=== PATIENT | male | born 1945 | race Caucasian/White ===

== ENCOUNTER → 2017-01-07 | Outpatient (CLI) | payer MEDICARE ==
--- NOTE | 2017-01-07 11:55 | REP ---
CERVICAL SPINE, EIGHT VIEW: HISTORY: Cervicalgia. There is no acute fracture or subluxation. The C3-4 through C6-7 intervertebral discs are decreased in height consistent with disc degeneration. Osteophytes are present on C3-7. There is narrowing of the right C3-5 neural foramina secondary to uncinate process hypertrophy. The left neural foramina are not well seen. IMPRESSION: Degenerative change as described above. Signed by Tadeo Rios MD 01/07/2017 12:03 P
== END ==
LOC: M WUC 09:43
PROVIDERS: ATTEND Family Medicine
DX: M54.2 Cervicalgia (principal)

== ENCOUNTER → 2018-01-15 | Outpatient (CLI) | payer MEDICARE ==
[2018-01-15 13:23] LABS: BASO # 0.1 10^3/uL (0.0-0.2); BASO % 1.3 % (0.0-1.0); EOS % 0.2 % (0.0-3.0); HEMATOCRIT 50.5 % (42.0-52.0); HEMOGLOBIN 17.3 g/dl (14.0-18.0); IMMATURE GRANULOCYTE % 0.2 % (0-3.0); LYMPH # 1.2 10^3/uL (1.5-4.5); LYMPH % 22.6 % (24.0-44.0); MEAN CORPUSCULAR HEMOGLOBIN 29.9 pg (27.0-33.0); MEAN CORPUSCULAR HGB CONC 34.3 g/dl (32.0-36.5); MEAN CORPUSCULAR VOLUME 87.4 fl (80.0-96.0); MONO # 0.4 10^3/uL (0.0-0.8); MONO % 6.8 % (0.0-5.0); NEUTROPHILS # 3.6 10^3/uL (1.8-7.7); NEUTROPHILS % 68.9 % (36.0-66.0); PLATELET COUNT, AUTOMATED 189 10^3/uL (150-450); RED BLOOD COUNT 5.78 10^6/uL (4.30-6.10); RED CELL DISTRIBUTION WIDTH 12.3 % (11.5-14.5); WHITE BLOOD COUNT 5.3 10^3/uL (4.0-10.0)
[2018-01-15 14:24] LABS: ALBUMIN 3.8 GM/DL (3.2-5.2); ALBUMIN/GLOBULIN RATIO 1.52 (1.00-1.93); ALKALINE PHOSPHATASE 76 U/L (45-117); ALT/SGPT 24 U/L (12-78); ANION GAP 5 MEQ/L (8-16); AST/SGOT 19 U/L (7-37); BILIRUBIN,TOTAL 2.4 MG/DL (0.2-1.0); BLOOD UREA NITROGEN 13 MG/DL (7-18); CALCIUM LEVEL 8.5 MG/DL (8.8-10.2); CARBON DIOXIDE LEVEL 30 MEQ/L (21-32); CHLORIDE LEVEL 108 MEQ/L (98-107); CHOLESTEROL LEVEL 237 MG/DL (<200); CHOLESTEROL RISK RATIO 3.246 (<5); CREATININE FOR GFR 0.88 MG/DL (0.70-1.30); GLOMERULAR FILTRATION RATE > 60.0 (>42); GLUCOSE, FASTING 96 MG/DL (70-100); HDL CHOLESTEROL 73 MG/DL (>40); LDL CHOLESTEROL 139.6 MG/DL (<100); NON-HDL-C 164 MG/DL; POTASSIUM SERUM 4.5 MEQ/L (3.5-5.1); PROSTATIC SPECIFIC AG MONITOR 2.09 NG/ML (< 4.0); SODIUM LEVEL 143 MEQ/L (136-145); TOTAL PROTEIN 6.3 GM/DL (6.4-8.2); TRIGLYCERIDES LEVEL 122 MG/DL (<150)
== END ==
LOC: M WUC 08:42
DX: Z12.5 Encounter for screening for malignant neoplasm of prostate (principal); I10 Essential (primary) hypertension
CPT/HCPCS: 80053

== ENCOUNTER → 2018-11-23 | Outpatient (CLI) | payer MEDICARE ==
[2018-11-23 10:08] LABS: BASO # 0.1 10^3/uL (0.0-0.2); BASO % 0.8 % (0.0-1.0); HEMOGLOBIN 17.3 g/dl (13.5-17.5); LYMPH # 1.5 10^3/uL (1.5-4.5); LYMPH % 23.5 % (24.0-44.0); MEAN CORPUSCULAR HEMOGLOBIN 31.1 pg (27.0-33.0); MEAN CORPUSCULAR HGB CONC 34.6 g/dl (32.0-36.5); MEAN CORPUSCULAR VOLUME 89.8 fl (80.0-96.0); MONO # 0.4 10^3/uL (0.0-0.8); MONO % 5.3 % (0.0-5.0); NEUTROPHILS # 4.6 10^3/uL (1.8-7.7); NEUTROPHILS % 69.8 % (36.0-66.0); PLATELET COUNT, AUTOMATED 174 10^3/uL (150-450); RED BLOOD COUNT 5.57 10^6/uL (4.30-6.10); WHITE BLOOD COUNT 6.6 10^3/uL (4.0-10.0)
[2018-11-23 10:32] LABS: ALBUMIN 3.8 GM/DL (3.2-5.2); ALT/SGPT 26 U/L (12-78); BILIRUBIN,TOTAL 2.1 MG/DL (0.2-1.0); BLOOD UREA NITROGEN 20 MG/DL (7-18); CALCIUM LEVEL 8.9 MG/DL (8.8-10.2); CARBON DIOXIDE LEVEL 30 MEQ/L (21-32); CHLORIDE LEVEL 105 MEQ/L (98-107); CHOLESTEROL LEVEL 221 MG/DL (<200); CHOLESTEROL RISK RATIO 3.348 (<5); CREATININE FOR GFR 0.79 MG/DL (0.70-1.30); GLOMERULAR FILTRATION RATE > 60.0 (>42); GLUCOSE, FASTING 98 MG/DL (70-100); HDL CHOLESTEROL 66 MG/DL (>40); LDL CHOLESTEROL 123 MG/DL (<100); NON-HDL-C 155 MG/DL; POTASSIUM SERUM 4.3 MEQ/L (3.5-5.1); SODIUM LEVEL 144 MEQ/L (136-145); TRIGLYCERIDES LEVEL 158 MG/DL (<150)
== END ==
LOC: M WUC 08:04
PROVIDERS: ATTEND Family Medicine
DX: I10 Essential (primary) hypertension (principal)

== ENCOUNTER → 2018-12-08 | Outpatient (CLI) | payer MEDICARE | LOC: M WUC 08:25 | PROVIDERS: ATTEND Family Medicine | DX: D35.00 Benign neoplasm of unspecified adrenal gland (principal) ==

== ENCOUNTER → 2018-12-14 | Outpatient (CLI) | payer MEDICARE | LOC: M WUC 08:05 | PROVIDERS: ATTEND Family Medicine | DX: D35.00 Benign neoplasm of unspecified adrenal gland (principal) ==

== ENCOUNTER → 2018-12-15 | Outpatient (REF) | payer MEDICARE | LOC: M LAB REF 10:22 | PROVIDERS: ATTEND Family Medicine | DX: D35.00 Benign neoplasm of unspecified adrenal gland (principal) ==

== ENCOUNTER 2019-01-06 08:55 | Day surgery (SDC) | payer MEDICARE ==
[~2019-01-06] VITALS: Ht 172.7 cm; Wt 83.0 kg
[~2019-01-06 08:55] MED LIST: LIDOCAINE 2% INJ 100 MG/5 ML SDV (FOR ANES.) As Ordered ONE; LISI10TA2 PO; MULT1TAB28 PO; NS 1,000 ML IV ONE; OSTETAB PO; PROPOFOL 200 MG/20 ML VIAL As Ordered ONE; TURM1CAP5 PO
[2019-01-06] MEDS ORDERED: PROPOFOL 200 MG/20 ML VIAL As Ordered ONE (12:09)
--- NOTE | 2019-01-06 12:19 | ROOR ---
Patient Name: Williams Gaona Procedure Date: 01/06/2019 11:20 AM Date of : 1945 Age: 73 Room: [facility] Gender: Male Note Status: Finalized Procedure: Upper GI endoscopy Indications: Abdominal pain in the right upper quadrant Providers: Giuliano Joseph MD Referring MD: Zackary Grant MD Requesting Provider: Medicines: Monitored Anesthesia Care Complications: No immediate complications. Procedure: Pre-Anesthesia Assessment: - Prior to the procedure, a History and Physical was performed, and patient medications and allergies were reviewed. The patient is competent. The risks and benefits of the procedure and the sedation options and risks were discussed with the patient. All questions were answered and informed consent was obtained. Patient identification and proposed procedure were verified by the physician, the nurse and the anesthesiologist in the endoscopy suite. Mental Status Examination: alert and oriented. Airway Examination: normal oropharyngeal airway and neck mobility. Respiratory Examination: clear to auscultation. CV Examination: normal. Prophylactic Antibiotics: The patient does not require prophylactic antibiotics. Prior Anticoagulants: The patient has taken no previous anticoagulant or antiplatelet agents. ASA Grade Assessment: II - A patient with mild systemic disease. After reviewing the risks and benefits, the patient was deemed in satisfactory condition to undergo the procedure. The anesthesia plan was to use monitored anesthesia care (MAC). Immediately prior to administration of medications, the patient was re-assessed for adequacy to receive sedatives. The heart rate, respiratory rate, oxygen saturations, blood pressure, adequacy of pulmonary ventilation, and response to care were monitored throughout the procedure. The physical status of the patient was re-assessed after the procedure. The Endoscope was introduced through the mouth, and advanced to the second part of duodenum. The upper GI endoscopy was accomplished without difficulty. The patient tolerated the procedure well. Findings: A small hiatal hernia was present. The Z-line was irregular and was found 38 cm from the incisors. This was biopsied with a cold forceps for histology. Patchy nodular mucosa was found in the gastric antrum. Biopsies were taken with a cold forceps for Helicobacter pylori testing. Estimated blood loss was minimal. Scattered mild mucosal variance characterized by scarring and altered texture was found in the duodenal bulb. Biopsies were taken with a cold forceps for histology. Estimated blood loss was minimal. Impression: - Small hiatal hernia. - Z-line irregular, 38 cm from the incisors. Biopsied. - Nodular mucosa in the gastric antrum. Biopsied. - Mucosal variant in the duodenum. Biopsied. Recommendation: - Discharge patient to home (ambulatory). - Telephone my office for pathology results in 1 week. Giuliano Joseph MD Giuliano Joseph MD 01/06/2019 12:19:44 PM This report has been signed electronically. Number of Addenda: 0 Note Initiated On: 01/06/2019 11:20 AM Estimated Blood Loss: Estimated blood loss was minimal.
--- NOTE | 2019-01-06 12:25 | ROOR ---
Patient Name: Williams Gaona Procedure Date: 01/06/2019 11:21 AM Date of : 1945 Age: 73 Room: [facility] Gender: Male Note Status: Finalized Procedure: Colonoscopy Indications: Abdominal pain Providers: Giuliano Joseph MD Referring MD: Zackary Grant MD Requesting Provider: Medicines: Monitored Anesthesia Care Complications: No immediate complications. Procedure: Pre-Anesthesia Assessment: - Prior to the procedure, a History and Physical was performed, and patient medications and allergies were reviewed. The patient is competent. The risks and benefits of the procedure and the sedation options and risks were discussed with the patient. All questions were answered and informed consent was obtained. Patient identification and proposed procedure were verified by the physician, the nurse and the anesthesiologist in the endoscopy suite. Mental Status Examination: alert and oriented. Airway Examination: normal oropharyngeal airway and neck mobility. Respiratory Examination: clear to auscultation. CV Examination: normal. Prophylactic Antibiotics: The patient does not require prophylactic antibiotics. Prior Anticoagulants: The patient has taken no previous anticoagulant or antiplatelet agents. ASA Grade Assessment: II - A patient with mild systemic disease. After reviewing the risks and benefits, the patient was deemed in satisfactory condition to undergo the procedure. The anesthesia plan was to use monitored anesthesia care (MAC). Immediately prior to administration of medications, the patient was re-assessed for adequacy to receive sedatives. The heart rate, respiratory rate, oxygen saturations, blood pressure, adequacy of pulmonary ventilation, and response to care were monitored throughout the procedure. The physical status of the patient was re-assessed after the procedure. The Colonoscope was introduced through the anus and advanced to the cecum, identified by appendiceal orifice and ileocecal valve. The colonoscopy was technically difficult and complex due to unable to hold much air with insufflation. The patient tolerated the procedure well. The quality of the bowel preparation was adequate to identify polyps. Findings: Hemorrhoids were found on perianal exam. A 25 to 26 mm polyp was found in the sigmoid colon. The polyp was pedunculated. The polyp was removed with a hot snare. Resection and retrieval were complete. Snare polypectomy done, polyp is about 2 cms, hard, Additional margins obtained with snare polypectomy of the base Clips placed at the end x 2 to prevent bleeding Estimated blood loss: none. Non-bleeding external and internal hemorrhoids were found during retroflexion and during perianal exam. The hemorrhoids were medium-sized. Impression: - Hemorrhoids found on perianal exam. - One 25 to 26 mm polyp in the sigmoid colon, removed with a hot snare. Resected and retrieved. - Non-bleeding external and internal hemorrhoids. Recommendation: - Telephone my office for pathology results in 1 week. - Repeat colonoscopy in 1 year for surveillance. Giuliano Joseph MD Giuliano Joseph MD 01/06/2019 12:24:59 PM This report has been signed electronically. Number of Addenda: 0 Note Initiated On: 01/06/2019 11:21 AM Estimated Blood Loss: Estimated blood loss: none.
[2019-01-06 12:50] VITALS: BP 127/84
== END 2019-01-06 13:15 | disposition home or self-care (01) ==
LOC: M OPP 08:55
PROVIDERS: ATTEND Surgery
DX: K64.8 Other hemorrhoids (principal); D12.5 Benign neoplasm of sigmoid colon; K44.9 Diaphragmatic hernia without obstruction or gangrene; K22.8 Other specified diseases of esophagus; K31.89 Other diseases of stomach and duodenum; R10.11 Right upper quadrant pain; Z79.899 Other long term (current) drug therapy; Z87.891 Personal history of nicotine dependence

== ENCOUNTER → 2019-10-20 | Outpatient (CLI) | payer MEDICARE ==
[~2019-10-20] MED LIST changes: -LIDOCAINE 2% INJ 100 MG/5 ML SDV (FOR ANES.) As Ordered ONE; +LISI10TA15 PO; -LISI10TA2 PO; -NS 1,000 ML IV ONE; -PROPOFOL 200 MG/20 ML VIAL As Ordered ONE
[2019-10-20 10:18] LABS: BLOOD UREA NITROGEN 13 MG/DL (7-18); CALCIUM LEVEL 8.7 MG/DL (8.8-10.2); CARBON DIOXIDE LEVEL 28 MEQ/L (21-32); CHLORIDE LEVEL 108 MEQ/L (98-107); CREATININE FOR GFR 0.81 MG/DL (0.70-1.30); GLOMERULAR FILTRATION RATE > 60.0 (>42); GLUCOSE, FASTING 93 MG/DL (70-100); POTASSIUM SERUM 4.1 MEQ/L (3.5-5.1); SODIUM LEVEL 143 MEQ/L (136-145)
== END ==
LOC: M WUC 08:06
PROVIDERS: ATTEND Family Medicine
DX: I10 Essential (primary) hypertension (principal)

== ENCOUNTER → 2019-10-26 | Outpatient (CLI) | payer MEDICARE ==
[~2019-10-26] MED LIST changes: +PROHANCE 279.3MG/ML 15ML VIAL (A9576) As Ordered ONE
--- NOTE | 2019-10-26 14:13 | REP ---
MRI ABDOMEN AND ADRENALS WITHOUT AND WITH IV CONTRAST: HISTORY: Benign neoplasm of the adrenal gland. Comparison MRI study of the abdomen [facility] dated November 30, 2018. This was read as showing two small hemangiomas of the liver, a gallstone, and a small left adrenal adenoma. There were a benign appearing renal cysts. MRI FINDINGS: Axial and coronal images are acquired. T1- and T2-weighted sequences include spin-echo, fast spin echo, in- and [id number], diffusion, and postcontrast imaging. The MRI contrast enhancement dose is 15 mL of intravenous ProHance. MRI FINDINGS: There are multiple parapelvic cysts and cortical cysts in the kidneys. The largest cyst in the right kidney is in its lower pole measuring 3.4 cm in diameter. There is a parapelvic cyst in the left kidney which is somewhat elongate measuring 1.9 cm in diameter. A gallstone is visible in the neck of the gallbladder as before. Spleen is unremarkable. The right adrenal gland is normal. The left adrenal gland superiorly contains a small nodular area, 1.4 cm in diameter, unchanged from the prior study. This shows signal loss on the [id number] imaging consistent with intralesional fat. There are two small hyperintense lesions seen and near the dome of the liver almost excluded from the field of view on coronal T2-weighted scans but unchanged from the prior study. IMPRESSION: 1. Small benign adrenal adenoma. This does not merit interval followup. 2. Multiple benign appearing cysts in the right kidney. 3. Stable benign liver lesions. Electronically Signed by William Preciado MD 10/26/2019 03:33 P
== END ==
LOC: M RAD 10:53
PROVIDERS: ATTEND Family Medicine
DX: D35.00 Benign neoplasm of unspecified adrenal gland (principal); N28.1 Cyst of kidney, acquired; D13.4 Benign neoplasm of liver
CPT/HCPCS: 74183; A9576

== ENCOUNTER → 2020-01-13 | Outpatient (CLI) | payer MEDICARE ==
[~2020-01-13] MED LIST changes: -PROHANCE 279.3MG/ML 15ML VIAL (A9576) As Ordered ONE
[2020-01-13 11:04] LABS: HEMATOCRIT 51.4 % (42.0-52.0); HEMOGLOBIN 17.5 g/dl (13.5-17.5); MEAN CORPUSCULAR VOLUME 91.1 fl (80.0-96.0); PLATELET COUNT, AUTOMATED 176 10^3/uL (150-450); RED BLOOD COUNT 5.64 10^6/uL (4.30-6.10); WHITE BLOOD COUNT 5.1 10^3/uL (4.0-10.0)
[2020-01-13 11:42] LABS: ALBUMIN 3.8 GM/DL (3.2-5.2); ALT/SGPT 26 U/L (12-78); BILIRUBIN,TOTAL 2.6 MG/DL (0.2-1.0); BLOOD UREA NITROGEN 12 MG/DL (7-18); CALCIUM LEVEL 8.7 MG/DL (8.8-10.2); CARBON DIOXIDE LEVEL 33 MEQ/L (21-32); CHLORIDE LEVEL 104 MEQ/L (98-107); CHOLESTEROL LEVEL 209 MG/DL (<200); CHOLESTEROL RISK RATIO 3.317 (<5); CREATININE FOR GFR 0.83 MG/DL (0.70-1.30); GLOMERULAR FILTRATION RATE > 60.0 (>42); GLUCOSE, FASTING 93 MG/DL (70-100); HDL CHOLESTEROL 63 MG/DL (>40); LDL CHOLESTEROL 125 MG/DL (<100); NON-HDL-C 146 MG/DL; POTASSIUM SERUM 4.3 MEQ/L (3.5-5.1); SODIUM LEVEL 141 MEQ/L (136-145); TOTAL PROTEIN 6.3 GM/DL (6.4-8.2); TRIGLYCERIDES LEVEL 103 MG/DL (<150)
== END ==
LOC: M WUC 08:05
PROVIDERS: ATTEND Family Medicine
DX: Z12.5 Encounter for screening for malignant neoplasm of prostate (principal); I10 Essential (primary) hypertension

== ENCOUNTER → 2021-02-14 | Outpatient (CLI) | payer MEDICARE ==
[2021-02-14 09:52] LABS: HEMATOCRIT 51.7 % (42.0-52.0); HEMOGLOBIN 17.5 g/dl (13.5-17.5); MEAN CORPUSCULAR HEMOGLOBIN 30.6 pg (27.0-33.0); MEAN CORPUSCULAR HGB CONC 33.8 g/dl (32.0-36.5); MEAN CORPUSCULAR VOLUME 90.4 fl (80.0-96.0); PLATELET COUNT, AUTOMATED 151 10^3/uL (150-450); RED BLOOD COUNT 5.72 10^6/uL (4.30-6.10); WHITE BLOOD COUNT 5.5 10^3/uL (4.0-10.0)
[2021-02-14 10:46] LABS: ALBUMIN 3.6 GM/DL (3.2-5.2); ALT/SGPT 23 U/L (12-78); BILIRUBIN,TOTAL 2.1 MG/DL (0.2-1.0); BLOOD UREA NITROGEN 11 MG/DL (7-18); CALCIUM LEVEL 8.6 MG/DL (8.8-10.2); CARBON DIOXIDE LEVEL 27 MEQ/L (21-32); CHLORIDE LEVEL 105 MEQ/L (98-107); CHOLESTEROL LEVEL 206 MG/DL (<200); CHOLESTEROL RISK RATIO 3.433 (<5); CREATININE FOR GFR 0.77 MG/DL (0.70-1.30); GLOMERULAR FILTRATION RATE > 60.0 (>42); GLUCOSE, FASTING 98 MG/DL (70-100); HDL CHOLESTEROL 60 MG/DL (>40); LDL CHOLESTEROL 120 MG/DL (<100); NON-HDL-C 146 MG/DL; POTASSIUM SERUM 3.8 MEQ/L (3.5-5.1); SODIUM LEVEL 140 MEQ/L (136-145); TOTAL PROTEIN 6.3 GM/DL (6.4-8.2); TRIGLYCERIDES LEVEL 129 MG/DL (<150)
== END ==
LOC: M WUC 08:15
PROVIDERS: ATTEND Family Medicine
DX: Z12.5 Encounter for screening for malignant neoplasm of prostate (principal); I10 Essential (primary) hypertension
CPT/HCPCS: 36415; 80053; 80061; 85027; G0103

== ENCOUNTER → 2022-02-08 | Outpatient (CLI) | payer MEDICARE ==
[~2022-02-08] MED LIST changes: +CENT1TAB PO; +GLUC1TAB58 PO; -LISI10TA15 PO; +LISI10TA24 PO; +LOSA100T5 PO; +LOSA25TA13 PO; +VITA250T4 PO
== END ==
LOC: M LABSMTC 09:32
PROVIDERS: ATTEND Anesthesiology
DX: Z01.812 Encounter for preprocedural laboratory examination (principal); Z20.822 Contact with and (suspected) exposure to COVID-19

== ENCOUNTER 2022-02-13 10:52 | Day surgery (SDC) | payer MEDICARE ==
[~2022-02-13] VITALS: Ht 171.4 cm; Wt 86.5 kg
[~2022-02-13 10:52] MED LIST changes: +NS 1,000 ML IV ONE
[2022-02-13] MEDS ORDERED: propofoL 200 MG/20 ML VIAL As Ordered ONE (11:42)
[2022-02-13] MEDS ORDERED: LIDOCAINE 2% 100MG/5ML SDV (FOR ANES.) As Ordered ONE (11:42)
[2022-02-13] MEDS ORDERED: SUCCINYLCHOLINE 100 MG/5 ML SYRINGE (J0330) As Ordered ONE (12:35)
[2022-02-13 13:30] VITALS: BP 125/73
== END 2022-02-13 13:33 | disposition home or self-care (01) ==
LOC: M OPP 10:52
PROVIDERS: ATTEND Surgery
DX: Z12.11 Encounter for screening for malignant neoplasm of colon (principal); Z86.010 Personal history of colon polyps; Z80.0 Family history of malignant neoplasm of digestive organs; D12.6 Benign neoplasm of colon, unspecified; K57.30 Diverticulosis of large intestine without perforation or abscess without bleeding; K64.8 Other hemorrhoids; K80.80 Other cholelithiasis without obstruction; K80.20 Calculus of gallbladder without cholecystitis without obstruction; G47.30 Sleep apnea, unspecified; Z79.899 Other long term (current) drug therapy; Z87.891 Personal history of nicotine dependence
CPT/HCPCS: 45385; 88305; J0330

== ENCOUNTER → 2022-04-11 | Outpatient (CLI) | payer MEDICARE ==
[~2022-04-11] MED LIST changes: -NS 1,000 ML IV ONE
[2022-04-11 11:07] LABS: THYROID STIMULATING HORMONE 0.963 uIU/ML (0.358-3.740)
== END ==
LOC: M WUC 08:39
PROVIDERS: ATTEND Internal Medicine Cardiovascular Disease
DX: I10 Essential (primary) hypertension (principal); R60.0 Localized edema; I49.3 Ventricular premature depolarization; R06.02 Shortness of breath

== ENCOUNTER → 2022-04-19 | Outpatient (CLI) | payer MEDICARE | LOC: M RAD 11:59 | PROVIDERS: ATTEND Internal Medicine Cardiovascular Disease | DX: R09.89 Other specified symptoms and signs involving the circulatory and respiratory systems (principal) ==

== ENCOUNTER → 2023-02-11 | Outpatient (CLI) | payer MEDICARE ==
[2023-02-11 12:27] LABS: BASO % 0.5 % (0.0-1.0); EOS # 0.2 10^3/uL (0.0-0.5); EOS % 3.3 % (0.0-3.0); HEMATOCRIT 50.7 % (42.0-52.0); HEMOGLOBIN 17.1 g/dl (13.5-17.5); LYMPH # 1.7 10^3/uL (1.5-5.0); LYMPH % 30.8 % (24.0-44.0); MEAN CORPUSCULAR HEMOGLOBIN 31.1 pg (27.0-33.0); MEAN CORPUSCULAR HGB CONC 33.7 g/dl (32.0-36.5); MEAN CORPUSCULAR VOLUME 92.3 fl (80.0-96.0); MONO # 0.5 10^3/uL (0.0-0.8); MONO % 9.8 % (2.0-8.0); NEUTROPHILS % 55.2 % (36.0-66.0); PLATELET COUNT, AUTOMATED 155 10^3/uL (150-450); RED BLOOD COUNT 5.49 10^6/uL (4.30-6.10); WHITE BLOOD COUNT 5.5 10^3/uL (4.0-10.0)
[2023-02-11 12:55] LABS: ALKALINE PHOSPHATASE 73 U/L (46-116); ALT/SGPT 25 U/L (7.0-40); AST/SGOT 23 U/L (<34); BILIRUBIN,TOTAL 2.5 MG/DL (0.3-1.2); BLOOD UREA NITROGEN 14 MG/DL (9-23); CALCIUM LEVEL 8.9 MG/DL (8.3-10.6); CARBON DIOXIDE LEVEL 30 MMOL/L (20-31); CHLORIDE LEVEL 103 MMOL/L (98-107); CHOLESTEROL LEVEL 202 MG/DL (<200); CHOLESTEROL RISK RATIO 3.13 (<5); CREATININE FOR GFR 0.69 MG/DL (0.70-1.30); GLOMERULAR FILTRATION RATE > 60.0 (>42); GLUCOSE, FASTING 99 MG/DL (74-106); HDL CHOLESTEROL 64.5 MG/DL (>40); LDL CHOLESTEROL 114.3 MG/DL (<100); NON-HDL-C 137.5 MG/DL; POTASSIUM SERUM 3.5 MMOL/L (3.5-5.1); SODIUM LEVEL 141 MMOL/L (136-145); TOTAL PROTEIN 6.6 G/DL (5.7-8.2); TRIGLYCERIDES LEVEL 116 MG/DL (<150)
== END ==
LOC: M WUC 08:01
PROVIDERS: ATTEND Family Medicine
DX: I10 Essential (primary) hypertension (principal)

== ENCOUNTER → 2023-08-26 | Outpatient (CLI) | payer MEDICARE ==
[2023-08-26 11:55] LABS: BASO % 0.5 % (0.0-1.0); HEMATOCRIT 49.7 % (42.0-52.0); HEMOGLOBIN 17.1 g/dl (13.5-17.5); LYMPH # 1.6 10^3/uL (1.5-5.0); LYMPH % 26.1 % (24.0-44.0); MEAN CORPUSCULAR HEMOGLOBIN 31.7 pg (27.0-33.0); MEAN CORPUSCULAR HGB CONC 34.4 g/dl (32.0-36.5); MONO # 0.5 10^3/uL (0.0-0.8); MONO % 7.6 % (2.0-8.0); NEUTROPHILS # 3.9 10^3/uL (1.5-8.5); NEUTROPHILS % 65.6 % (36.0-66.0); PLATELET COUNT, AUTOMATED 178 10^3/uL (150-450); WHITE BLOOD COUNT 5.9 10^3/uL (4.0-10.0)
[2023-08-26 13:34] LABS: ALBUMIN 4.1 G/DL (3.2-5.2); ALKALINE PHOSPHATASE 67 U/L (46-116); ALT/SGPT 22 U/L (7.0-40); AST/SGOT 24 U/L (<34); BILIRUBIN,TOTAL 3.2 MG/DL (0.3-1.2); BLOOD UREA NITROGEN 11 MG/DL (9-23); CALCIUM LEVEL 8.9 MG/DL (8.3-10.6); CARBON DIOXIDE LEVEL 28 MMOL/L (20-31); CHLORIDE LEVEL 101 MMOL/L (98-107); CHOLESTEROL LEVEL 156 MG/DL (<200); CHOLESTEROL RISK RATIO 2.77 (<5); CREATININE FOR GFR 0.75 MG/DL (0.70-1.30); GLOMERULAR FILTRATION RATE > 60.0 (>42); GLUCOSE, FASTING 88 MG/DL (74-106); HDL CHOLESTEROL 56.2 MG/DL (>40); NON-HDL-C 99.8 MG/DL; POTASSIUM SERUM 3.7 MMOL/L (3.5-5.1); SODIUM LEVEL 140 MMOL/L (136-145); TOTAL PROTEIN 6.6 G/DL (5.7-8.2); TRIGLYCERIDES LEVEL 99 MG/DL (<150)
== END ==
LOC: M WUC 08:01
PROVIDERS: ATTEND Family Medicine
DX: I10 Essential (primary) hypertension (principal)

== ENCOUNTER 2024-03-11 14:02 | Observation (INO) | payer MEDICARE ==
[~2024-03-11] VITALS: Ht 172.7 cm; Wt 80.6 kg
[~2024-03-11 14:02] MED LIST changes: +VITA250T27 PO; -VITA250T4 PO
[2024-03-11 17:50] LABS: BASO # 0.1 10^3/uL (0.0-0.2); BASO % 0.8 % (0.0-1.0); EOS # 0.1 10^3/uL (0.0-0.5); EOS % 0.8 % (0.0-3.0); HEMATOCRIT 48.7 % (42.0-52.0); HEMOGLOBIN 17.1 g/dl (13.5-17.5); LYMPH # 1.6 10^3/uL (1.5-5.0); LYMPH % 24.8 % (24.0-44.0); MEAN CORPUSCULAR HEMOGLOBIN 31.5 pg (27.0-33.0); MEAN CORPUSCULAR HGB CONC 35.1 g/dl (32.0-36.5); MEAN CORPUSCULAR VOLUME 89.9 fl (80.0-96.0); MONO # 0.5 10^3/uL (0.0-0.8); MONO % 7.3 % (2.0-8.0); NEUTROPHILS # 4.3 10^3/uL (1.5-8.5); NEUTROPHILS % 66.1 % (36.0-66.0); PLATELET COUNT, AUTOMATED 160 10^3/uL (150-450); RED BLOOD COUNT 5.42 10^6/uL (4.30-6.10); WHITE BLOOD COUNT 6.4 10^3/uL (4.0-10.0)
[2024-03-11 18:08] LABS: INR 1.12; PARTIAL THROMBOPLASTIN TIME 30.1 SECONDS (24.8-34.2)
[2024-03-11] MEDS: LABETALOL 100MG/20ML VIAL IV STA (18:18)
[2024-03-11 18:20] LABS: CK-MB VALUE MASS 1.6 NG/ML (<3.6)
[2024-03-11 18:22] LABS: BLOOD UREA NITROGEN 15 MG/DL (9-23); CALCIUM LEVEL 8.7 MG/DL (8.3-10.6); CARBON DIOXIDE LEVEL 26 MMOL/L (20-31); CHLORIDE LEVEL 107 MMOL/L (98-107); CREATININE FOR GFR 0.68 MG/DL (0.70-1.30); GLOMERULAR FILTRATION RATE > 60.0 (>42); GLUCOSE, FASTING 86 MG/DL (74-106); POTASSIUM SERUM 3.7 MMOL/L (3.5-5.1); SODIUM LEVEL 141 MMOL/L (136-145)
[2024-03-11 18:23] LABS: CPK CREATINE PHOSPHOKINASE 82 U/L (46-171); MB/CK RELATIVE INDEX 1.95 (< OR =4)
[2024-03-11 18:24] LABS: THYROID STIMULATING HORMONE 1.668 uIU/ML (0.55-4.78)
[2024-03-11 18:25] LABS: FREE T4 1.15 NG/DL (0.89-1.76)
[2024-03-11 19:24] LABS: CK-MB VALUE MASS 1.7 NG/ML (<3.6)
[2024-03-11 19:25] LABS: MB/CK RELATIVE INDEX 2.09 (< OR =4)
[2024-03-11] MEDS ORDERED: ACETAMINOPHEN TAB 650MG DOSE (2X325MG) PO PRN (20:50)
[2024-03-11] MEDS: LOSARTAN 25 MG TAB PO ONE (21:38)
[2024-03-11] MEDS ORDERED: CO Q50CA8 PO (22:33)
[2024-03-11] MEDS ORDERED: GLUC1TAB58 PO (22:33)
[2024-03-11] MEDS ORDERED: CINN500C15 PO (22:33)
[2024-03-11] MEDS ORDERED: TARTCAP PO (22:33)
[2024-03-11] MEDS ORDERED: LUTE10TA PO (22:33)
[2024-03-11] MEDS ORDERED: LOSA100T5 PO (22:33)
[2024-03-11] MEDS ORDERED: ASPI-615 PO (22:33)
[2024-03-11] MEDS ORDERED: CURC500C PO (22:33)
[2024-03-11] MEDS ORDERED: HOME MED LIST COMPLETE! XX SCH (22:35)
[2024-03-11 22:50] VITALS: BP 159/82; TEMP 97.5; O2SAT 95
[2024-03-11 23:00] VITALS: BP 159/82; TEMP 97.5; O2SAT 95
[2024-03-12 01:30] VITALS: BP 125/71; TEMP 97.9; O2SAT 98
[2024-03-12 05:30] VITALS: BP 123/73; TEMP 97.7; O2SAT 98
[2024-03-12 07:31] LABS: CHOLESTEROL RISK RATIO 3.38 (<5); LDL CHOLESTEROL 113.2 MG/DL (<100)
[2024-03-12] MEDS ORDERED: ASPIRIN 81MG ENTERIC TABLET PO PRN (07:40)
[2024-03-12] MEDS ORDERED: LOSARTAN 25 MG TAB PO SCH (09:00)
[2024-03-12] MEDS: MULTIVITAMINS/MINERALS THERAP 1 TAB PO SCH (09:29)
[2024-03-12 09:30] VITALS: BP 142/67
[2024-03-12] MEDS: LOSARTAN 50MG TABLET PO SCH (09:30)
[2024-03-12] MEDS: hydroCHLOROthiazide 12.5 MG CAPSULE PO SCH (09:30)
[2024-03-12 10:00] VITALS: BP 139/65; TEMP 98.2; O2SAT 96
== END 2024-03-12 11:30 | disposition home or self-care (01) ==
LOC: M ED 14:02 → M ED INP 20:50 → ENRESERV 22:11 → M MSPAV 22:43
PROVIDERS: ADMIT Preventive Medicine Undersea and Hyperbaric Medicine; ATTEND Internal Medicine
DX: R55 Syncope and collapse (principal); I16.0 Hypertensive urgency; I10 Essential (primary) hypertension; Z79.899 Other long term (current) drug therapy
CPT/HCPCS: 36415; 70450; 71046; 80048; 80061; 82550; 82553; 83735; 84439; 84443; 84484; 85025; 85610; 85730; 93005; 93041; 93306; 94760; 96374; 99285; G0378; J1920

== ENCOUNTER → 2024-09-06 | Outpatient (CLI) | payer MEDICARE ==
[~2024-09-06] MED LIST changes: +ASPI-615 PO; +CINN500C15 PO; +CO Q50CA8 PO; +CURC500C PO; +LUTE10TA PO; +TARTCAP PO
== END ==
LOC: M WUC 13:32
PROVIDERS: ATTEND Nurse Practitioner Family
DX: R05.9 Cough, unspecified (principal)

== ENCOUNTER → 2024-09-28 | Outpatient (CLI) | payer MEDICARE | LOC: M WUC 09:30 | PROVIDERS: ATTEND Family Medicine | DX: M79.601 Pain in right arm (principal) ==

== ENCOUNTER → 2024-12-01 | Outpatient (CLI) | payer MEDICARE | LOC: M PLAIMG 13:18 | PROVIDERS: ATTEND Physician Assistant | DX: M79.621 Pain in right upper arm (principal); M19.011 Primary osteoarthritis, right shoulder ==

== ENCOUNTER → 2024-12-01 | Outpatient (CLI) | payer MEDICARE | LOC: M PLAIMG 13:20 | PROVIDERS: ATTEND Otolaryngology | DX: R43.8 Other disturbances of smell and taste (principal); J32.4 Chronic pansinusitis ==

== ENCOUNTER → 2025-01-04 | Outpatient (CLI) | payer MEDICARE | LOC: M RAD 12:52 | PROVIDERS: ATTEND Physician Assistant | DX: I65.23 Occlusion and stenosis of bilateral carotid arteries (principal) ==

== ENCOUNTER → 2025-02-16 | Outpatient (CLI) | payer MEDICARE ==
[2025-02-16 10:27] LABS: ALBUMIN 3.8 G/DL (3.2-5.2); ALKALINE PHOSPHATASE 73 U/L (40-129); ALT/SGPT 23 U/L (7.0-40); AST/SGOT 15 U/L (<34); BILIRUBIN,TOTAL 2.8 MG/DL (0.3-1.2); BLOOD UREA NITROGEN 18 MG/DL (9-23); CALCIUM LEVEL 8.8 MG/DL (8.3-10.6); CARBON DIOXIDE LEVEL 28 MMOL/L (20-31); CHLORIDE LEVEL 105 MMOL/L (98-107); CHOLESTEROL LEVEL 224 MG/DL (<200); CREATININE FOR GFR 0.75 MG/DL (0.70-1.30); GLOMERULAR FILTRATION RATE > 90.0 (>35); GLUCOSE, FASTING 110 MG/DL (74-106); HDL CHOLESTEROL 69.9 MG/DL (>40); LDL CHOLESTEROL 134.9 MG/DL (<100); NON-HDL-C 154.1 MG/DL; POTASSIUM SERUM 3.8 MMOL/L (3.5-5.1); SODIUM LEVEL 143 MMOL/L (136-145); TOTAL PROTEIN 6.4 G/DL (5.7-8.2); TRIGLYCERIDES LEVEL 96 MG/DL (<150)
== END ==
LOC: M LAB 08:58
PROVIDERS: ATTEND Physician Assistant
DX: E78.49 Other hyperlipidemia (principal)

== ENCOUNTER → 2025-06-20 | Outpatient (CLI) | payer MEDICARE ==
[2025-06-20 13:39] LABS: BASO # 0.1 10^3/uL (0.0-0.2); BASO % 1.2 % (0.0-1.0); EOS # 0.1 10^3/uL (0.0-0.5); EOS % 1.7 % (0.0-3.0); LYMPH # 1.7 10^3/uL (1.5-5.0); LYMPH % 27.7 % (24.0-44.0); MONO # 0.4 10^3/uL (0.0-0.8); MONO % 6.6 % (2.0-8.0); NEUTROPHILS # 3.8 10^3/uL (1.5-8.5); NEUTROPHILS % 62.6 % (36.0-66.0); PLATELET COUNT, AUTOMATED 220 10^3/uL (150-450)
[2025-06-20 13:44] LABS: FREE T4 1.34 NG/DL (0.89-1.76)
[2025-06-20 13:51] LABS: ALT/SGPT 24.0 U/L (7.0-40); AST/SGOT 24.0 U/L (<34); CALCIUM LEVEL 9.2 MG/DL (8.3-10.6); CARBON DIOXIDE LEVEL 28.0 MMOL/L (20-31); CHLORIDE LEVEL 104.0 MMOL/L (98-107); CHOLESTEROL LEVEL 148.0 MG/DL (<200); CHOLESTEROL RISK RATIO 2.11 (<5); CREATININE FOR GFR 0.78 MG/DL (0.70-1.30); GLOMERULAR FILTRATION RATE 89.6 (>35); LDL CHOLESTEROL 58.8 MG/DL (<100); MAGNESIUM LEVEL 2.0 MG/DL (1.8-2.4); NON-HDL-C 78.0 MG/DL; POTASSIUM SERUM 4.0 MMOL/L (3.5-5.1); SODIUM LEVEL 145.0 MMOL/L (136-145); TRIGLYCERIDES LEVEL 96.0 MG/DL (<150)
== END ==
LOC: M WUC 08:01
PROVIDERS: ATTEND Physician Assistant
DX: I49.3 Ventricular premature depolarization (principal); E78.49 Other hyperlipidemia

== ENCOUNTER 2025-07-16 09:09 | Emergency (ER) | payer MEDICARE ==
[~2025-07-16] VITALS: Ht 172.7 cm; Wt 87.2 kg
[2025-07-16] MEDS ORDERED: ISOVUE-370 76% 100 ML VIAL As Ordered ONE (09:30)
[2025-07-16 09:45] LABS: BASO # 0.1 10^3/uL (0.0-0.2); BASO % 1.0 % (0.0-1.0); EOS # 0.2 10^3/uL (0.0-0.5); EOS % 3.1 % (0.0-3.0); LYMPH # 1.7 10^3/uL (1.5-5.0); LYMPH % 28.7 % (24.0-44.0); MONO # 0.4 10^3/uL (0.0-0.8); MONO % 6.5 % (2.0-8.0); NEUTROPHILS # 3.5 10^3/uL (1.5-8.5); NEUTROPHILS % 60.5 % (36.0-66.0); PLATELET COUNT, AUTOMATED 163 10^3/uL (150-450)
[2025-07-16 10:03] LABS: INR 0.9
[2025-07-16 10:08] LABS: CK-MB VALUE MASS 2.6 NG/ML (<3.6)
[2025-07-16 10:10] LABS: CALCIUM LEVEL 9.1 MG/DL (8.3-10.6); CARBON DIOXIDE LEVEL 25 MMOL/L (20-31); CHLORIDE LEVEL 106 MMOL/L (98-107); CREATININE FOR GFR 0.70 MG/DL (0.70-1.30); GLOMERULAR FILTRATION RATE > 90.0 (>35); MAGNESIUM LEVEL 1.9 MG/DL (1.8-2.4); POTASSIUM SERUM 4.1 MMOL/L (3.5-5.1); SODIUM LEVEL 143 MMOL/L (136-145)
[2025-07-16 10:12] LABS: FREE T4 1.15 NG/DL (0.89-1.76)
[2025-07-16 10:21] LABS: KETONE, URINE AUTO RFX NEGATIVE (NEGATIVE); LEUKOCYTE ESTERASE UR AUTO RFX NEGATIVE (NEGATIVE); NITRITE, URINE AUTO RFX NEGATIVE (NEGATIVE); RBC, URINE AUTO RFX 0 /HPF (0-3); SQUAM EPITHELIAL CELL UR AURFX 0 /HPF (0-6); WBC, URINE AUTO RFX 0 /HPF (0-3)
[2025-07-16 10:22] LABS: CPK CREATINE PHOSPHOKINASE 66 U/L (46-171); MB/CK RELATIVE INDEX 3.93 (< OR =4)
[2025-07-16 11:09] VITALS: O2SAT 97
[2025-07-16 11:17] VITALS: BP 165/74
[2025-07-16 12:01] LABS: CK-MB VALUE MASS 1.8 NG/ML (<3.6)
[2025-07-16 12:04] LABS: CPK CREATINE PHOSPHOKINASE 40.0 U/L (46-171); MB/CK RELATIVE INDEX 4.5 (< OR =4)
[2025-07-16 12:34] VITALS: TEMP 97.9
== END 2025-07-16 12:50 | disposition home or self-care (01) ==
LOC: M ED 09:09
DX: R42 Dizziness and giddiness (principal); I65.22 Occlusion and stenosis of left carotid artery; T88.7XXA Unspecified adverse effect of drug or medicament, initial encounter; G31.9 Degenerative disease of nervous system, unspecified; R90.82 White matter disease, unspecified; M50.320 Other cervical disc degeneration, mid-cervical region, unspecified level; M50.321 Other cervical disc degeneration at C4-C5 level; M50.322 Other cervical disc degeneration at C5-C6 level; I10 Essential (primary) hypertension; I49.3 Ventricular premature depolarization; J32.4 Chronic pansinusitis
CPT/HCPCS: 36415; 70450; 70496; 70498; 70551; 71045; 80047; 80048; 81001; 82550; 82553; 83735; 84439; 84443; 84484; 85025; 85610; 85730; 87486; 87581; 87633; 87798; 93005; 93041; 94760; 99285; Q9967